=== PATIENT | female | born 1980 | race American Indian/Alaskan Native ===

== ENCOUNTER 2019-01-27 16:11 | Emergency (ER) | payer OTHER ==
[2019-01-27] MEDS ORDERED: IBUPROFEN 600 MG TAB PO ONE (19:54)
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
[2019-01-27 20:42] VITALS: BP 117/79
== END 2019-01-27 20:50 | disposition home or self-care (01) ==
LOC: ED 16:11
DX: S16.1XXA Strain of muscle, fascia and tendon at neck level, initial encounter (principal); S39.012A Strain of muscle, fascia and tendon of lower back, initial encounter; V49.59XA Passenger injured in collision with other motor vehicles in traffic accident, initial encounter; Y93.89 Activity, other specified; Y92.89 Other specified places as the place of occurrence of the external cause; Y99.8 Other external cause status
CPT/HCPCS: 72040; 72100